=== PATIENT | male | born 1990 | race Caucasian/White ===

== ENCOUNTER 2019-04-06 21:14 | Emergency (ER) | payer MEDICAID ==
[~2019-04-06] VITALS: Ht 188 cm; Wt 83.9 kg
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
[2019-04-06] MEDS ORDERED: NKM (21:20)
[2019-04-06] MEDS ORDERED: LORazepam 1mg tab ORAL ONE (21:45)
[2019-04-06] MEDS ORDERED: Ketorolac 60mg Inj IM ONE (21:45)
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
[2019-04-06 21:50] VITALS: BP 148/98
--- NOTE | 2019-04-06 22:00 | NUR ---
ED Nurse Note: Pt went to X ray.
[2019-04-06] MEDS ORDERED: Bacitracin Oint UD TOPIC ONE (23:15)
[2019-04-06] MEDS ORDERED: IBUPROFEN600 MG ORAL (23:41)
[2019-04-06] MEDS ORDERED: NORCO 5-325 TA1 EACH ORAL (23:41)
[2019-04-06 23:48] VITALS: BP 131/81
--- NOTE | 2019-04-06 23:50 | NUR ---
ER DISCHARGE NOTE: Patient is cleared to be discharged per ERMD, pt is aox4, on room air, with stable vital signs. pt was given dc and prescription instructions, pt was able to verbalize understanding, pt id band and removed without complications. pt is able to ambulate with steady gait with friends. pt took all belongings. Friends will drive home for Pt.
[2019-04-06 23:51] VITALS: BP 131/81
--- NOTE | 2019-04-07 09:27 | Diagnostic Imaging Report ---
Indication: Head trauma and headache Technique: Contiguous 5 mm thick transaxial imaging of the head obtained in a Siemens Sensation [address] scanner. Soft tissue and bone windows generated. Automatic Exposure Control was utilized. Total Dose length Product (DLP): 1393.[address] Dose Index Volume (CTDIvol): 70.38 mGy Comparison: none Findings: The size and configuration of the cortical sulci, basal cisterns, and ventricles are within normal limits for age. There is no mass effect, midline shift, or edema identified. There is no evidence of acute hemorrhage or abnormal intra-axial or extra-axial fluid collections. The bones and soft tissues are unremarkable. Impression: No mass effect, edema or acute bleed. [facility] has communicated the preliminary results to the Emergency Department. Their findings are largely concordant with this report. The CT scanner at [facility] is accredited by the [employer] and the scans are performed using dose optimization techniques as appropriate to a performed exam including Automatic Exposure control.
--- NOTE | 2019-04-07 10:28 | Diagnostic Imaging Report ---
Indication: Left leg pain Comparison: None Findings: Two views of the left tibia and fibula were obtained. No acute fracture, malalignment, or periosteal reaction are identified. Soft tissues are unremarkable. Impression: No acute injury.
--- NOTE | 2019-04-07 10:37 | Diagnostic Imaging Report ---
Indication: Back pain Comparison: None Findings: 3 views of the lumbar spine were obtained. No fracture is identified. There is no malalignment identified. Intervertebral disks and vertebral body heights are normal. Facets are unremarkable. IMPRESSION: No acute injury identified.
--- NOTE | 2019-04-07 10:39 | Diagnostic Imaging Report ---
Indication: Pain Findings: 2 views of the left humerus and 3 view left shoulder were obtained. Severe comminuted fracture of the left proximal humerus demonstrated. This is in the area of the humeral neck. The fracture extends into the humeral head. There is slight inferior migration of the humeral head probably due to joint hemarthrosis. The scapula and distal clavicle appear unremarkable. IMPRESSION: Acute, comminuted fracture of the left humeral head and neck
--- NOTE | 2019-04-07 10:48 | Diagnostic Imaging Report ---
Indication: Dyspnea Comparison: None A single view chest radiograph was obtained. Findings: Cardiomediastinal appearance is within normal limits for age. The lungs are clear. Pulmonary vascularity is appropriate. The diaphragmatic contour is smooth and costophrenic angles are sharp. No pleural effusions are identified. The bones are unremarkable. Impression: No acute findings
== END 2019-04-07 00:15 | disposition home or self-care (01) ==
LOC: EMR 21:31
DX: S42.292A Other displaced fracture of upper end of left humerus, initial encounter for closed fracture (principal); S60.312A Abrasion of left thumb, initial encounter; S60.311A Abrasion of right thumb, initial encounter; S80.12XA Contusion of left lower leg, initial encounter; V09.9XXA Pedestrian injured in unspecified transport accident, initial encounter; Y92.410 Unspecified street and highway as the place of occurrence of the external cause; R51 Headache
CPT/HCPCS: 29105; 70450; 71045; 72020; 96372; 99284